=== PATIENT | female | born 1960 | race Caucasian/White ===

== ENCOUNTER 2023-01-24 10:40 | Emergency (ER) | payer MEDICAID, OTHER ==
[2023-01-24] MEDS ORDERED: CHERRY SYRUP 10 ML UDC PO ONE (11:40)
[2023-01-24] MEDS ORDERED: DEXAMETHASONE 10 MG/ML VIAL PO STA (11:40)
--- NOTE | 2023-01-24 11:52 | ED Physician Documentation ---
History of Present Illness - Stated complaint Stated Complaint: CONGESTION - Chief complaint Chief Complaint: Heent - Additonal information Additional information: 63-year-old female presents emergency department for evaluation of sinus pres sure headache and sore throat that began on January 18. She reports that she has been using Sudafed and Tylenol without resolution of the congestion. She has tried saline rinses without resolution of pain. She has not had measured fevers but has had subjective chills. Reports a productive green cough. No nausea or vomiting. No chest pain no shortness of air. She states that she cannot tolerate the headache anymore. Review of Systems Constitutional: reports: Chills, Myalgias Nose: reports: Rhinorrhea / runny nose, Congestion Throat: reports: Sore throat Respiratory: reports: Cough Neurologic: reports: Headache PD PAST MEDICAL HISTORY - Present Medications Home Medications: Ambulatory Orders Medication Instructions Recorded Confirmed Amox/Clav 875/125 [Augmentin] 1 each PO Q12H #20 tablet 01/24/23 FLUoxetine [PROzac] 30 mg PO DAILY 01/24/23 01/24/23 Letrozole 2.5 mg PO DAILY 01/24/23 01/24/23 Levothyroxine [Synthroid] 50 mcg PO QDAC 01/24/23 01/24/23 Liothyronine [Cytomel] 5 mcg PO QDAC 01/24/23 01/24/23 - Allergies Allergies/Adverse Reactions: Allergies Allergy/AdvReac Type Severity Reaction Status Date / Time No Known Drug Allergies Allergy Verified 01/24/23 11:05 PD ED PE NORMAL - General General: Alert and oriented X 3, No acute distress, Well developed/nourished - HEENT HEENT: Atraumatic, Ears normal, Moist mucous membranes, Pharynx benign (Benign appearing posterior oropharynx without exudate.), Other (Percussion tenderness to the Bilateral maxillary sinuses. Percussion tenderness to bilateral frontal sinuses right greater than left) - Neck Neck: Supple, no meningeal sign, No adenopathy - Cardiac Cardiac: RRR, No murmur - Respiratory Respiratory: No respiratory distress, Clear bilaterally - Abdomen Abdomen: Normal bowel sounds, Soft, Non tender, Non distended - Back Back: No CVA TTP - Derm Derm: Warm and dry - Extremities Extremities: No deformity - Neuro Neuro: Alert and oriented X 3 Eye Opening: Spontaneous Motor: Obeys Commands Verbal: Oriented GCS Score: 15 Results - Vitals Vitals: Vital Signs - 24 hr 01/24/23 11:03 Temperature 37.2 C Heart Rate 87 Respiratory 16 Rate Blood Pressure 103/67 O2 Saturation 97 Oxygen O2 Source Room air - Rads (name of study) cxr Relevant Findings:: Final report received (no acute cardiopulmonary process) PD Medical Decision Making - ED course Complexity details: reviewed results, d/w patient ED course: 63-year-old female presents emergency department now for 1 week of cough, produ ctive and green as well as sinus pressure, congestion and headache. Reporting subjective fevers and chills at home. Using saline nasal rinses and Sudafed without relief of symptoms. On exam cardiopulmonary auscultation was unremarkable. No room air hypoxia. She did have a right-sided frontal maxillary sinus tenderness greater than left. Given the duration of symptoms and failure to resolve with reasonable conservative treatment will treat for acute sinusitis with Augmentin. I gave the patient a single dose of oral Decadron today in the emergency department to help with pain and inflammation. I am recommending she continue saline rinses followed by Flonase at home. Tylenol and ibuprofen [id number] for headache and discomfort. The usual emergent return precautions were discussed for failure symptoms to resolve. Departure - Departure Disposition: 01 Home, Self Care Clinical Impression: Sinusitis Qualifiers: Sinusitis location: frontal Chronicity: acute Recurrence: not specified as recurrent Qualified Code(s): J01.10 - Acute frontal sinusitis, unspecified Condition: Stable Record reviewed to determine appropriate education?: Yes Instructions: ED Sinusitis Abx Tx Prescriptions: Amox/Clav 875/125 [Augmentin] 1 each PO Q12H #20 tablet Comments: You have had sinus pressure congestion and headache now for almost a week. You have reported some subjective fevers and chills at home. I am going to treat you for sinusitis with a course of antibiotics. Augmentin has been sent to the [facility] in [place]. You were given a single dose of oral steroids today in the emergency department which should help with pain and congestion markedly over the next several days. In general I would like you to take Tylenol and ibuprofen [id number] for pain and headache. I want you to continue to do daily saline nasal rinses followed by Flonase. Taking an [id number] decongestant such as Claritin or Benadryl at night can also be helpful. If you find that your symptoms or not getting better after about 5 days with the antibiotics, or they get worse sooner with fevers then please return to the ER for repeat evaluation. Please discuss this ED visit with your primary care doctor.
--- NOTE | 2023-01-24 11:52 | XRAY Report ---
PROCEDURE: Chest 1 View X-Ray INDICATIONS: cough, congestion TECHNIQUE: One view of the chest was acquired. COMPARISON: None. FINDINGS: Surgical changes and devices: None. Lungs and pleura: No pleural effusions or pneumothorax. Lungs are clear. Nodular opacity in the r ight lower lung field. A thin wire density is seen in the right lower lung field adjacent to the nodu le. Surgical clips are present. Mediastinum: Mediastinal contours appear normal. Heart size is normal. Bones and chest wall: No suspicious bony lesions. Overlying soft tissues appear unremarkable. IMPRESSION: 1. No acute abnormality of the chest. 2. Postoperative changes in the right lower lung field with a thin wire. Recommend comparison with pr ior imaging. Reviewed by: Kimo Lopez on 01/24/2023 10:51 AM [facility]NA Approved by: Kimo Lopez on 01/24/2023 10:51 AM [facility]NA Station ID: [id number]
[2023-01-24 12:22] VITALS: BP 105/65
== END 2023-01-24 12:16 | disposition home or self-care (01) ==
LOC: ED 10:40
DX: J01.10 Acute frontal sinusitis, unspecified (principal); Z79.899 Other long term (current) drug therapy
CPT/HCPCS: 71045; 99283; A9270

== ENCOUNTER 2023-02-23 15:42 | Emergency (ER) | payer MEDICAID ==
[2023-02-23 16:16] LABS: BASOPHILS % (AUTO) 0.4 %; EOSINOPHILS # (AUTO) 0.1 10^3/uL (0.0-0.7); EOSINOPHILS % (AUTO) 1.4 %; HCT - HEMATOCRIT 36.6 % (37.0-47.0); HGB - HEMOGLOBIN 11.8 g/dL (12.0-16.0); LYMPHOCYTES # (AUTO) 1.7 10^3/uL (1.5-3.5); LYMPHOCYTES % (AUTO) 23.2 %; MEAN CORPUSCULAR HEMOGLOBIN 30.3 pg (27.0-31.0); MEAN CORPUSCULAR HGB CONC 32.2 g/dL (32.0-36.0); MEAN CORPUSCULAR VOLUME 93.8 fL (81.0-99.0); MEAN PLATELET VOLUME 11.4 fL (7.9-10.8); MONOCYTES # (AUTO) 0.4 10^3/uL (0.0-1.0); MONOCYTES % (AUTO) 4.9 %; NEUTROPHILS # (AUTO) 5.1 10^3/uL (1.5-6.6); NEUTROPHILS % (AUTO) 69.8 %; PLT - PLATELET COUNT 233 10^3/uL (130-450); RED CELL DISTRIBUTION WIDTH 12.5 % (12.0-15.0); WHITE BLOOD COUNT 7.3 x10^3/uL (4.8-10.8)
[2023-02-23 16:33] LABS: ALBUMIN 4.1 g/dL (3.2-5.5); ALBUMIN/GLOBULIN RATIO 1.5 (1.0-2.2); BILIRUBIN,TOTAL 0.4 mg/dL (0.2-1.0); CALCIUM 8.6 mg/dL (8.5-10.3); CREATININE 0.7 mg/dL (0.6-1.3); POTASSIUM 3.8 mmol/L (3.5-4.5); TOTAL PROTEIN 6.9 g/dL (6.4-8.9)
--- NOTE | 2023-02-23 16:33 | ED Physician Documentation ---
History of Present Illness - Stated complaint Stated Complaint: ABD PX - Chief complaint Chief Complaint: Abd Pain - History obtained from History obtained from: Patient - History of Present Illness Timing: How many days ago (7) Pain level max: 10 Pain level now: 3 - Additonal information Additional information: Patient is a 63-year-old female who presents to the emergency department with left-sided abdominal pain. Ongoing for the past 1 week. She states she has not had a bowel movement in 2 days. No fevers. No chills. Has had diverticulitis in the past and states that this feels similar. No diarrhea. No vomiting. No blood in the stool. No urinary symptoms. No dysuria or hematuria.Patient is a 63-year-old female who presents to the emergency department with left-sided abdominal pain. Ongoing for the past 1 week. She states she has not had a bowel movement in 2 days. No fevers. No chills. Has had diverticulitis in the past and states that this feels similar. No diarrhea. No vomiting. No blood in the stool. No urinary symptoms. No dysuria or hematuria. Review of Systems Constitutional: denies: Fever, Chills Respiratory: denies: Cough GI: denies: Diarrhea, Hematemesis, Bloody / black stool : denies: Dysuria, Frequency, Hesitancy Skin: denies: Rash PD PAST MEDICAL HISTORY - Past Medical History Past Medical History: Yes Endocrine/Autoimmune: HyPOthyroidism Psych: Depression, Anxiety - Present Medications Home Medications: Ambulatory Orders Medication Instructions Recorded Confirmed Amox/Clav 875/125 [Augmentin] 1 each PO Q12H #20 tablet 01/24/23 FLUoxetine [PROzac] 30 mg PO DAILY 01/24/23 01/24/23 Letrozole 2.5 mg PO DAILY 01/24/23 01/24/23 Levothyroxine [Synthroid] 50 mcg PO QDAC 01/24/23 01/24/23 Liothyronine [Cytomel] 5 mcg PO QDAC 01/24/23 01/24/23 - Allergies Allergies/Adverse Reactions: Allergies Allergy/AdvReac Type Severity Reaction Status Date / Time No Known Drug Allergies Allergy Verified 02/23/23 15:48 - Social History Does the pt smoke?: No Smoking Status: Never smoker PD ED PE NORMAL - Vitals Vital signs reviewed: Yes - General General: Alert and oriented X 3, No acute distress - HEENT HEENT: Moist mucous membranes - Neck Neck: Supple, no meningeal sign - Cardiac Cardiac: RRR, Strong equal pulses - Respiratory Respiratory: No respiratory distress, Clear bilaterally - Abdomen Abdomen: Soft, Non distended, Other (TTP over the LLQ, LUQ. no peritoneal signs. otherwise normal exam. ) - Back Back: No CVA TTP, No spinal TTP - Derm Derm: Warm and dry - Neuro Neuro: Alert and oriented X 3 - Psych Psych: Normal mood, Normal affect Results - Vitals Vitals: Vital Signs - 24 hr 02/23/23 02/23/23 02/23/23 15:48 16:44 17:43 Temperature 36.5 C 36.8 C Heart Rate 88 84 70 Respiratory 16 16 16 Rate Blood Pressure 146/90 H 118/69 132/73 H O2 Saturation 98 99 100 Oxygen O2 Source Room air - Labs Labs: Laboratory Tests 02/23/23 02/23/23 02/23/23 16:11 16:11 16:16 WBC 7.3 RBC 3.90 L Hgb 11.8 L Hct 36.6 L MCV 93.8 MCH 30.3 MCHC 32.2 RDW 12.5 Plt Count 233 MPV 11.4 H Neut # (Auto) 5.1 Lymph # (Auto) 1.7 [place] # (Auto) 0.4 Eos # (Auto) 0.1 Baso # (Auto) 0.0 Absolute Nucleated RBC 0.00 Nucleated RBC % 0.0 Sodium 141 Potassium 3.8 Chloride 103 Carbon Dioxide 34 H Anion Gap 4.0 L BUN 14 Creatinine 0.7 Estimated GFR (MDRD) 84 L Glucose 164 H Calcium 8.6 Total Bilirubin 0.4 AST 15 ALT 10 Alkaline Phosphatase 67 Total Protein 6.9 Albumin 4.1 Globulin 2.8 Albumin/Globulin Ratio 1.5 Lipase 27 Urine Color YELLOW Urine Clarity CLOUDY Urine pH 8.5 H Ur Specific [place] 1.015 Urine Protein NEGATIVE Urine Glucose (UA) NEGATIVE Urine Ketones NEGATIVE Urine Occult Blood MODERATE H Urine Nitrite NEGATIVE Urine Bilirubin NEGATIVE Urine Urobilinogen 0.2 (NORMAL) Ur Leukocyte Esterase NEGATIVE Urine RBC 11-25 H Urine WBC 0-3 Ur Squamous Epith Cells RARE Squamous Amorphous Sediment Marked Urine Bacteria Few Ur Microscopic Review INDICATED Urine Culture Comments NOT INDICATED - Rads (name of study) CT abd/pelvis Relevant Findings:: Final report received, See rad report PD Medical Decision Making - ED course Complexity details: reviewed results, re-evaluated patient, considered differential, d/w patient, d/w family ED course: 63-year-old female with abdominal pain. Has large constipation on CT scan. No evidence of infection. No significant lab abnormalities. Given Gastrografin p.o. We will have her follow-up with her doctor for further care. Abdominal exam is without peritoneal signs. Likely that she is constipated from the pain medication and muscle relaxant she was taking for her back. We will have her follow-up with her PCP as needed for further care. Patient counseled regarding signs and symptoms for which I believe and urgent re-evaluation would be necessary. Patient with good understanding of and agreement to plan and is comfortable going home at this time This document was made in part using voice recognition software. While efforts are made to proofread this document, sound alike and grammatical errors may occur. Departure - Departure Disposition: 01 Home, Self Care Clinical Impression: Constipation Qualifiers: Constipation type: unspecified constipation type Qualified Code(s): K59.00 - Constipation, unspecified Condition: Good Instructions: ED Constipation Follow-Up: your,doctor in 1 week [Other] Comments: Please follow-up with your doctor for further care. Please return if you worsen. Please make sure you are drinking plenty of water. Your CT scan shows a large amount of constipation today. Forms: PCP List Discharge Date/Time: 02/23/23 18:17
[2023-02-23 16:42] LABS: BILIRUBIN,URINE NEGATIVE (NEGATIVE); GLUCOSE, URINE (UA) NEGATIVE (NEGATIVE); KETONES,URINE (UA) NEGATIVE (NEGATIVE); LEUKOCYTE ESTERASE, URINE NEGATIVE (NEGATIVE); NITRITE,URINE NEGATIVE (NEGATIVE); OCCULT BLOOD,URINE MODERATE (NEGATIVE); PH,URINE 8.5 PH (5.0-7.5); PROTEIN,URINE NEGATIVE (NEGATIVE); UROBILINOGEN,URINE 0.2 (NORMAL) E.U./dL (NORMAL)
[2023-02-23 16:43] LABS: CLARITY,URINE CLOUDY (CLEAR)
[2023-02-23 16:55] LABS: AMORPHOUS SEDIMENT,UR Marked /LPF; BACTERIA,URINE Few /HPF (None Seen); SQUAMOUS EPITHELIAL CELL,UR RARE Squamous (<= Few); WBC,URINE 0-3 /HPF (0-5)
[2023-02-23] MEDS ORDERED: iohexoL-300 100 ML VIAL IVP ONE (16:56)
--- NOTE | 2023-02-23 17:44 | CT Report ---
PROCEDURE: ABDOMEN/PELVIS W INDICATIONS: L sided abd pain CONTRAST: 100mL Omni 300 TECHNIQUE: After the administration of intravenous contrast, 5 mm thick sections acquired from the diaphragms to the symphysis. 5 mm thick coronal and sagittal reformats were acquired. For radiation dose reducti on, the following was used: automated exposure control, adjustment of mA and/or kV according to mehdi ent size. COMPARISON: None FINDINGS: Image quality: Excellent. Lung bases and heart: Calcified granuloma in the right lower lobe. Liver: Subcentimter hypoattenuating liver lesions, too small to characterize by CT. Gallbladder and biliary tree: No radiopaque stones or wall thickening. No biliary dilation. Spleen: No splenomegaly. Pancreas: No pancreatic ductal dilation. Adrenals: No adrenal nodule. Kidneys and ureters: No hydronephrosis. No renal cystic lesion which requires follow up. No solid mas s. Bowel and peritoneum: No bowel distension. No pathologic free fluid. Large colonic stool load. Fecal debris within the small bowel. Normal appendix. Colonic diverticulosis without evidence of diverticul itis. Lymph nodes: No central or retroperitoneal adenopathy. Vessels: No infrarenal aortic aneurysm. PELVIS Reproductive organs: Unremarkable. Bladder: No abnormal wall thickening, accounting for underdistension. Pelvic lymph nodes: No pelvic adenopathy by size criteria. Bones: No aggressive osseous abnormality. Other: Small right inguinal hernia containing fat. IMPRESSION: Large colonic stool load. Fecal debris within the small bowel, which may indicate small intestinal bacterial overgrowth versus slow intestinal transit. Reviewed by: Theodore Singh on 02/23/2023 5:42 PM PDT Approved by: Theodore Singh on 02/23/2023 5:42 PM PDT Station ID: [id number]
[2023-02-23 17:51] VITALS: BP 132/73; O2SAT 100
[2023-02-23] MEDS ORDERED: DIATR MEGLU/DIATRIZOATE SODIUM 120 ML BOTTLE PO ONE (17:59)
[2023-02-23] MEDS ORDERED: DIATR MEGLU/DIATRIZOATE SODIUM 120 ML BOTTLE ONE (18:13)
== END 2023-02-23 18:17 | disposition home or self-care (01) ==
LOC: ED 15:42
DX: K59.00 Constipation, unspecified (principal)
CPT/HCPCS: 36415; 74177; 80053; 81001; 83690; 85025; 99283; 99284; Q9963; Q9967; 81003; 87086